=== PATIENT | male | born 1980 | race Two or more races ===

== ENCOUNTER 2018-10-28 04:43 | Emergency (ER) | payer SELFPAY ==
[~2018-10-28] VITALS: Ht 175.3 cm; Wt 104.3 kg
[2018-10-28] MEDS ORDERED: NKM (04:48)
[2018-10-28 04:50] VITALS: BP 130/90
--- NOTE | 2018-10-28 04:50 | NUR ---
ED Nurse Note: Right lower abdominal pain for three days - pt has a cellulitis appearing area at the site. pt complaining of 10/10 pain. pt stated he had one before and poke it by himself. seen by fran. will continue to monitor.
[2018-10-28] MEDS ORDERED: Cephalexin 500mg cap ORAL ONE (05:00)
[2018-10-28] MEDS ORDERED: CEPHALEXIN500 MG ORAL (05:02)
[2018-10-28] MEDS ORDERED: IBUPROFEN600 MG ORAL (05:02)
[2018-10-28] MEDS ORDERED: DOXYCYCLINE MO100 MG ORAL (05:02)
[2018-10-28 05:08] VITALS: BP 130/90
--- NOTE | 2018-10-28 05:08 | NUR ---
ER DISCHARGE NOTE: Patient is cleared to be discharged per ERMD, pt is aox4, on room air, with stable vital signs. pt was given dc and prescription instructions, pt was able to verbalize understanding, pt id band removed without complications. pt is able to ambulate with steady gait. pt took all belongings.
--- NOTE | 2018-10-28 05:11 | Emergency Room Report ---
History of Present Illness General Chief Complaint: Skin Rash/Abscess Source: Patient Present Illness HPI Patient is a 37-year-old male presented after increased right lower abdominal swelling and erythema. Patient reports of increased painful lesion to that area. He denies any fever. He reports having multiple prior other locations of skin abscesses. He states he was recently prescribed antibiotics but did not take them. He denies any current fever. He denies any genital discharge or burning sensation. He had not been vomiting. He denies prior history of immunocompromise. Allergies: Coded Allergies: No Known Allergies (Unverified , 10/28/18) Patient History Reviewed Nursing Documentation: PMH: Agreed; PSxH: Agreed Nursing Documentation-PMH Hx Asthma: Yes Review of Systems All Other Systems: negative except mentioned in HPI Physical Exam Vital Signs Date Time Temp Pulse Resp B/P (MAP) Pulse Ox O2 Delivery O2 Flow Rate FiO2 10/28/18 04:45 97.3 101 18 130/90 98 Room Air General Appearance: well appearing, no apparent distress, alert, GCS 15 Head: normocephalic, atraumatic ENT: hearing grossly normal, normal voice Neck: full range of motion, supple Respiratory: no respiratory distress, speaking full sentences Cardiovascular #1: normal inspection Musculoskeletal: normal inspection, no calf tenderness Neurologic: normal inspection, alert, oriented x3, normal gait Psychiatric: mood/affect normal Skin: warm/dry, other Medical Decision Making Diagnostic Impression: Primary Impression: Skin infection Last Vital Signs Date Time Temp Pulse Resp B/P (MAP) Pulse Ox O2 Delivery O2 Flow Rate FiO2 10/28/18 04:45 97.3 101 18 130/90 98 Room Air Disposition: HOME, SELF-CARE Condition: Stable Scripts Ibuprofen* (MOTRIN*) 600 Mg Tablet 600 MG ORAL Q8H PRN for For Pain, #30 TAB 0 Refills Prov: Zaheer Lenz MD 10/28/18 Doxycycline Monohydrate* (DOXYCYCLINE MONOHYDRATE*) 100 Mg Capsule 100 MG ORAL Q12H, #14 CAP 0 Refills Prov: Zaheer Lenz MD 10/28/18 Cephalexin* (KEFLEX*) 500 Mg Capsule 500 MG ORAL EVERY 6 HOURS, #28 CAP Prov: Zaheer Lenz MD 10/28/18 Patient Instructions: Cellulitis Zaheer Lenz MD Oct 28, 2018 05:11
== END 2018-10-28 05:08 | disposition home or self-care (01) ==
LOC: EMR 05:05
DX: L08.9 Local infection of the skin and subcutaneous tissue, unspecified (principal); J45.909 Unspecified asthma, uncomplicated
CPT/HCPCS: 99282